=== PATIENT | male | born 1990 | race African-American/Black ===

== ENCOUNTER 2018-12-05 22:31 | Emergency (ER) | payer OTHER ==
[2018-12-05 22:40] VITALS: BP 132/69
--- NOTE | 2018-12-05 23:44 | RADIOLOGY REPORT (SQ) ---
EXAM DESCRIPTION: XR FINGERS COMPLETED DATE/TME: 12/05/2018 00:00 CLINICAL HISTORY: 28 years, Male, Cut finger with a table saw at 1330. COMPARISON: None. FINDINGS/impression: Linear fracture through the distal third phalanx. There is no involvement of the DIP joint. No radiopaque foreign bodies in the third finger. There is a small radiopaque object adjacent to the fifth distal phalanx but this is only seen on the AP view.
[2018-12-06] MEDS ORDERED: SULFAMETHOXAZOLE/TRIMETHOPRIM 800-160 MG TABLET PO ONE (01:48)
[2018-12-06] MEDS ORDERED: CEPHALEXIN 500 MG CAPSULE PO ONE (01:48)
[2018-12-06] MEDS ORDERED: HYDROCODONE/ACETAMINOPHEN 5-325 MG (6 TAB/ER DISP) PO PRN (01:48)
--- NOTE | 2018-12-06 02:05 | ER Document Report ---
ED Wound - General Chief Complaint: Laceration Stated Complaint: CUT TIP OF MIDDLE FINGER OFF Time Seen by Provider: 12/06/18 01:32 Primary Care Provider: MARY TRUJILLO DO [ACTIVE STAFF] - Follow up in 3-5 days Notes: Patient is a 28-year-old male that comes to the emergency department for chief complaint of laceration to the right middle finger. He states he nicked it on a table saw when the table so was turning off. Discussed a laceration to the tip of the finger up to the base of the nail. This happened at about 1 PM, he states that he cleaned it with peroxide, bandages to it, but was prompted later to come to the emergency department. He reports his tetanus is up-to-date. He denies any other injuries or concerns. He takes no daily medications. TRAVEL OUTSIDE OF THE [place] IN LAST 30 DAYS: No - Related Data Allergies/Adverse Reactions: No Known Allergies Allergy (Verified 01/31/13 16:14) Past Medical History - General Information source: Patient - Social History Smoking Status: Never Smoker Drug Abuse: None Lives with: Family Family History: None Surgical Hx: Negative - Immunizations Immunizations up to date: Yes Hx Diphtheria, Pertussis, Tetanus Vaccination: Yes Review of Systems - Review of Systems Constitutional: No symptoms reported EENT: No symptoms reported Cardiovascular: No symptoms reported Respiratory: No symptoms reported Gastrointestinal: No symptoms reported Genitourinary: No symptoms reported Male Genitourinary: No symptoms reported Musculoskeletal: See HPI Skin: See HPI Hematologic/Lymphatic: No symptoms reported Neurological/Psychological: No symptoms reported Physical Exam - Vital signs Vitals: Temp Pulse Resp BP Pulse Ox 98.7 F 61 18 132/69 H 99 12/05/18 22:37 12/05/18 22:37 12/05/18 22:37 12/05/18 22:37 12/05/18 22:37 Course - Re-evaluation Re-evalutation: There is a irregular laceration to the tip of the right middle finger that goes up to but does not include the nail. This appears to have already started healing, happened over 12 hours ago. I did offer suturing after thorough cleansing but patient declined, states he does not want sutures. X-ray reviewed, shows fracture without displacement. I discussed with patient. Because of open fracture patient placed on antibiotics, given splint, discussed importance of close follow-up with orthopedic hand surgeon, discussed return precautions in detail. Patient states understanding and agreement with plan. - Vital Signs Vital signs: Temp Pulse Resp BP Pulse Ox 98.0 F 81 18 132/69 H 99 12/06/18 02:36 12/06/18 02:36 12/05/18 22:37 12/06/18 02:36 12/05/18 22:37 Procedures - Immobilization Right middle finger Pre-Proc Neuro Vasc Exam: Normal Immobilizer type: Finger splint (Static) Performed by: Provider Post-Proc Neuro Vasc Exam: Normal Alignment checked and good: Yes Discharge - Discharge Clinical Impression: Open fracture of distal phalanx of digit of right hand Laceration of right middle finger Qualifiers: Encounter type: initial encounter Damage to nail status: without damage Foreign body presence: without foreign body Qualified Code(s): S61.212A - Laceration without foreign body of right middle finger without damage to nail, initial encounter Condition: Stable Disposition: HOME, SELF-CARE Instructions: Oral Narcotic Medication ([facility]) Additional Instructions: You have a fracture underneath the laceration at the tip of your finger. Because of this you have the risk of developing an infection in the bone. Please take the antibiotics as prescribed, wear the protective splint, and be seen in close follow-up with the hand specialist/orthopedic doctor listed on the referral. Call tomorrow to set up your appointment. The current dressing can stay on for up to 3 days, I recommend changing this after 2 days. Continue to wear the splint as protection. Because you have declined to have this sutured closed also make sure you keep bacitracin and protective dressing over the area. Return immediately for any worsening symptoms including worsening pain, developing swelling or redness, discolored discharge, fever, or any other concerning symptoms. Prescriptions: Cephalexin Monohydrate [Keflex 500 mg Capsule] 500 mg PO QID #28 capsule Hydrocodone/Acetaminophen [[place] 5-325 mg Tablet] 1 - 2 tab PO ASDIR #10 tablet Sulfamethoxazole/Trimethoprim [Bactrim Ds Tablet] 1 each PO BID #14 tablet Forms: Return to Work Referrals: MARY TRUJILLO DO [ACTIVE STAFF] - Follow up in 3-5 days
== END 2018-12-06 02:48 | disposition home or self-care (01) ==
LOC: ER 22:31
PROC: 2W3JX1Z Immobilization of Right Finger using Splint (ICD-10-PCS; principal; 2018-12-05)
DX: S62.632B Displaced fracture of distal phalanx of right middle finger, initial encounter for open fracture (principal); W29.8XXA Contact with other powered hand tools and household machinery, initial encounter
CPT/HCPCS: 99283